=== PATIENT | female | born 1965 | race Caucasian/White ===

== ENCOUNTER → 2019-06-18 | Outpatient (CLI) | payer BC ==
--- NOTE | 2019-06-18 08:51 | RAD ---
EXAM DESCRIPTION: Pelvis CLINICAL HISTORY: 54 years Female, PAIN IN LEFT AND RIGHT HIP COMPARISON: None. FINDINGS: Single view of the pelvis demonstrates bony pelvis intact. No fracture or deformity or other abnormalities are noted. Minimal degenerative changes involving the hips and SI joints noted. No soft tissue masses seen. IMPRESSION: Normal pelvis one view. Electronically signed by: Daryl Estrada MD 06/18/2019 8:49 AM CDT
--- NOTE | 2019-06-18 08:53 | RAD ---
EXAM DESCRIPTION: Knee,Left Complete CLINICAL HISTORY: 54 years, Female, PAIN IN LEFT KNEE COMPARISON: None TECHNIQUE: Four views left knee FINDINGS: Four views left knee demonstrate normal bony appearance without joint effusion fracture or dislocation. The medial patellar facet on the axial images slightly irregular suggesting an area of either spurring or possibly a area of chondrosis or osteochondral defect. Patient symptoms persist consider MRI of the knee with attention to the medial patellar facet. IMPRESSION: 1. Essentially normal left knee except for cortical irregularity of the medial patellar facet on the axial view only. If symptoms persist consider MRI examination for further evaluation of this articular surface. Electronically signed by: Daryl Estrada MD 06/18/2019 8:52 AM CDT
--- NOTE | 2019-06-18 08:55 | RAD ---
EXAM DESCRIPTION: Knee,Right Complete CLINICAL HISTORY: 54 years, Female, PAIN IN RIGHT KNEE COMPARISON: None TECHNIQUE: Four views right knee FINDINGS: Four views right knee demonstrate normal alignment no fracture or deformity is seen. The articular surfaces are relatively smooth and joint space is maintained. No dislocation noted. IMPRESSION: 1. Negative right knee four views. Electronically signed by: Daryl Estrada MD 06/18/2019 8:53 AM CDT
== END ==
LOC: RAD 07:48
PROVIDERS: ATTEND Orthopaedic Surgery
DX: M25.551 Pain in right hip (principal); M25.552 Pain in left hip; M25.561 Pain in right knee; M25.562 Pain in left knee; M22.92 Unspecified disorder of patella, left knee

== ENCOUNTER → 2020-11-18 | Outpatient (CLI) | payer BC ==
--- NOTE | 2020-11-18 15:43 | RAD ---
EXAM DESCRIPTION: Chest,2 Views CLINICAL HISTORY: acute bronchitis COMPARISON: None FINDINGS: Two-view chest x-ray shows cardiomediastinal silhouette and pulmonary vasculature to be within normal limits. The lungs are normally aerated. Mild peripheral interstitial and alveolar airspace densities are seen in the mid to lower left lung and right lower lobe.. Costophrenic angles are sharp. Mild disc degenerative changes of the thoracic spine are seen. IMPRESSION: Mild airspace densities in the left greater than right lung suggest atelectasis versus pneumonia. Consider viral etiology. Electronically signed by: Erich Manuel MD 11/18/2020 3:42 PM [facility]
== END ==
LOC: RAD 12:11
PROVIDERS: ATTEND Nurse Practitioner Family
DX: J20.9 Acute bronchitis, unspecified (principal); R91.8 Other nonspecific abnormal finding of lung field